=== PATIENT | female | born 1970 | race Two or more races ===

== ENCOUNTER 2018-08-18 15:56 | Emergency (ER) | payer MEDICAID ==
[~2018-08-18] VITALS: Ht 154.9 cm; Wt 113.4 kg
[2018-08-18 17:23] VITALS: BP 168/75
== END 2018-08-18 17:38 | disposition home or self-care (01) ==
LOC: ER 15:56
DX: F41.9 Anxiety disorder, unspecified (principal); M19.90 Unspecified osteoarthritis, unspecified site; E07.9 Disorder of thyroid, unspecified; F31.9 Bipolar disorder, unspecified; F12.90 Cannabis use, unspecified, uncomplicated; Z88.5 Allergy status to narcotic agent; Z88.0 Allergy status to penicillin; Z88.8 Allergy status to other drugs, medicaments and biological substances; Z90.49 Acquired absence of other specified parts of digestive tract

== ENCOUNTER 2018-12-28 12:19 | Emergency (ER) | payer MEDICAID, OTHER ==
[~2018-12-28] VITALS: Ht 152.4 cm; Wt 106.6 kg
[2018-12-28 12:26] VITALS: BP 127/61
[2018-12-28] MEDS ORDERED: METHOCARBAMOL 500 MG TAB PO ONE (14:15)
[2018-12-28] MEDS ORDERED: KETOROLAC TROMETH 60MG/2ML VIAL IM ONE (14:15)
== END 2018-12-28 14:52 | disposition home or self-care (01) ==
LOC: ER 12:19
DX: G89.4 Chronic pain syndrome (principal); N61.0 Mastitis without abscess; F12.10 Cannabis abuse, uncomplicated; M54.2 Cervicalgia; M79.7 Fibromyalgia; Z88.0 Allergy status to penicillin; Z88.6 Allergy status to analgesic agent; Z86.39 Personal history of other endocrine, nutritional and metabolic disease
CPT/HCPCS: 96372; 99283; J1885

== ENCOUNTER 2019-01-29 19:18 | Emergency (ER) | payer OTHER ==
[~2019-01-29] VITALS: Ht 152.4 cm; Wt 106.6 kg
[2019-01-29 19:26] VITALS: BP 134/63
== END 2019-01-29 23:22 | disposition home or self-care (01) ==
LOC: ER 19:22
DX: J03.80 Acute tonsillitis due to other specified organisms (principal); B96.89 Other specified bacterial agents as the cause of diseases classified elsewhere; J02.9 Acute pharyngitis, unspecified; Z90.49 Acquired absence of other specified parts of digestive tract; Z88.5 Allergy status to narcotic agent; Z88.0 Allergy status to penicillin; Z88.8 Allergy status to other drugs, medicaments and biological substances
CPT/HCPCS: 71046

== ENCOUNTER 2019-02-20 18:13 | Emergency (ER) | payer OTHER ==
[~2019-02-20] VITALS: Ht 152.4 cm; Wt 104.3 kg
[2019-02-20 18:53] VITALS: BP 132/60
[2019-02-20] MEDS ORDERED: KETOROLAC TROMETH 60MG/2ML VIAL IM ONE (19:00)
[2019-02-20] MEDS ORDERED: BACLOFEN 10 MG TAB PO ONE (19:00)
== END 2019-02-20 20:32 | disposition home or self-care (01) ==
LOC: ER 18:13
DX: G89.29 Other chronic pain (principal); M19.90 Unspecified osteoarthritis, unspecified site; E07.9 Disorder of thyroid, unspecified; F12.90 Cannabis use, unspecified, uncomplicated; Z88.0 Allergy status to penicillin; Z88.8 Allergy status to other drugs, medicaments and biological substances; Z88.5 Allergy status to narcotic agent; Z90.49 Acquired absence of other specified parts of digestive tract; Z76.0 Encounter for issue of repeat prescription
CPT/HCPCS: 96372; 99283; J1885

== ENCOUNTER 2019-04-25 14:00 | Emergency (ER) | payer OTHER ==
[~2019-04-25] VITALS: Ht 152.4 cm; Wt 114.8 kg
[2019-04-25] MEDS ORDERED: SODIUM CHLORIDE 0.9% 500 ML IVB ONE (14:17)
[2019-04-25] MEDS ORDERED: ONDANSETRON HCL 4 MG/2 ML VIAL IV ONE (14:30)
[2019-04-25] MEDS ORDERED: MORPHINE SULFATE 4 MG/ML SYR/VIAL IV ONE (14:30)
[2019-04-25 14:36] LABS: Basophils # (auto) 0 uL; Basophils % (auto) 0.8 % (0.0-2.0); Eosinophils # (auto) 0.3 uL; Eosinophils % (auto) 4.1 % (0.0-7.0); Hematocrit 43.4 % (36.0-46.0); Hemoglobin 14.8 g/dL (12.2-16.2); Lymphocytes # (auto) 1.8 uL; Lymphocytes % (auto) 28.9 % (10.0-50.0); Mean Corpuscular Hemoglobin 30.9 pg (28.0-32.0); Mean Corpuscular Hgb Conc. 34.2 g/dL (32.0-36.0); Mean Corpuscular Volume 90.3 fL (80.0-100.0); Monocytes # (auto) 0.5 uL; Neutrophils # (auto) 3.6 uL; Neutrophils % (auto) 58.2 % (37.0-80.0); Platelet Count (auto) 195 10^3/uL (140-450); Red Blood Cells 4.81 10^6/uL (4.0-5.20); Red Cell Distribution Width 13.9 % (11.8-14.3); White Blood Cell 6.1 10^3/uL (4.4-10.8)
[2019-04-25 15:00] LABS: Albumin 3.4 g/dL (3.4-5.0); BUN/Creatinine Ratio 11.6; Calcium 8.5 mg/dL (8.5-10.1); Potassium 3.9 mmol/L (3.5-5.1)
[2019-04-25 15:03] LABS: Total Protein 7.2 g/dL (6.4-8.2)
[2019-04-25 16:48] VITALS: BP 135/97
== END 2019-04-25 16:49 | disposition home or self-care (01) ==
LOC: EDBD 14:00 → ER 14:05
DX: R10.32 Left lower quadrant pain (principal); N93.8 Other specified abnormal uterine and vaginal bleeding; M19.90 Unspecified osteoarthritis, unspecified site; E78.5 Hyperlipidemia, unspecified; F12.10 Cannabis abuse, uncomplicated; Z98.51 Tubal ligation status; Z86.39 Personal history of other endocrine, nutritional and metabolic disease; Z88.0 Allergy status to penicillin; Z88.6 Allergy status to analgesic agent
CPT/HCPCS: 36415; 74176; 80053; 82150; 83690; 85025; 94761

== ENCOUNTER 2019-07-30 11:48 | Inpatient (IN) | payer OTHER ==
[~2019-07-30] VITALS: Ht 152.4 cm; Wt 118.8 kg
[2019-07-30 12:28] LABS: Urine WBC None Seen /hpf (0 - 5)
[2019-07-30 12:45] LABS: Basophils # (auto) 0.1 uL; Basophils % (auto) 1.3 % (0.0-2.0); Eosinophils # (auto) 0.2 uL; Eosinophils % (auto) 2.9 % (0.0-7.0); Hematocrit 42.9 % (36.0-46.0); Hemoglobin 14.7 g/dL (12.2-16.2); Lymphocytes # (auto) 2.1 uL; Lymphocytes % (auto) 26.3 % (10.0-50.0); Mean Corpuscular Hemoglobin 30.8 pg (28.0-32.0); Mean Corpuscular Hgb Conc. 34.4 g/dL (32.0-36.0); Mean Corpuscular Volume 89.5 fL (80.0-100.0); Monocytes # (auto) 0.6 uL; Monocytes % (auto) 7.1 % (0.0-12.0); Neutrophils % (auto) 62.4 % (37.0-80.0); Nucleated Red Blood Cells % 0.1 %; Platelet Count (auto) 226 10^3/uL (140-450); Red Blood Cells 4.79 10^6/uL (4.0-5.20); Red Cell Distribution Width 13.9 % (11.8-14.3)
[2019-07-30 12:58] LABS: Urine Bacteria FEW /hpf (None Seen); Urine Blood Negative /uL (Negative); Urine Mucus FEW (None Seen); Urine Specific Gravity 1.019 (1.001-1.035)
[2019-07-30 13:02] LABS: INR 0.94 (0.9-1.15)
[2019-07-30 13:08] LABS: Albumin 3.5 g/dL (3.4-5.0); Anion Gap 6 (5-15); Calcium 8.5 mg/dL (8.5-10.1); Carbon Dioxide 26 mmol/L (21-32); Chloride 107 mmol/L (98-107); Glucose 104 mg/dL (74-106); Magnesium 2.1 mg/dL (1.6-2.6); Potassium 4.1 mmol/L (3.5-5.1); Sodium 139 mmol/L (136-145)
[2019-07-30 13:09] LABS: Alcohol, Urine < 3.0 mg/dL (0-5); Amphetamine Screen, Urine NEGATIVE (NEGATIVE); Barbiturate Scree,Urine NEGATIVE (NEGATIVE); Benzodiazephine Screen, Urine NEGATIVE (NEGATIVE); Cannabinoid Screen, Urine NEGATIVE (NEGATIVE); Cocaine Screen, Urine NEGATIVE (NEGATIVE); Opiate Scree,Urine NEGATIVE (NEGATIVE); Phencyclidine Screen, Urine NEGATIVE (NEGATIVE)
[2019-07-30 13:15] LABS: Alanine Aminotransferase 54 U/L (13-56); Alkaline Phosphatase 78 U/L (45-117); Aspartate Aminotransferase 29 U/L (15-37); GFR African American 114 mL/min; GFR Non-African American 95 mL/min; Total Protein 7.5 g/dL (6.4-8.2)
[2019-07-30 13:54] LABS: BUN/Creatinine Ratio 11.4; Blood Urea Nitrogen 8 mg/dL (7-18)
[2019-07-30] MEDS ORDERED: NITROGLYCERIN 0.4 MG SL TAB SL PRN (15:30)
[2019-07-30] MEDS ORDERED: MORPHINE SULF INJ 2 MG/ML SYRINGE 1ML IV PRN ×2 (15:30)
[2019-07-30] MEDS ORDERED: ACETAMINOPHEN 500 MG TAB PO PRN (15:30)
[2019-07-30] MEDS ORDERED: ONDANSETRON HCL 4 MG/2 ML VIAL IV PRN (15:30)
[2019-07-30 15:46] LABS: % Iron Saturation 30.2 % (15-50)
[2019-07-30 15:56] LABS: CRP High Sensitivity 0.35 mg/dL (< 0.3)
[2019-07-30 17:00] VITALS: BP 156/77
[2019-07-30] MEDS: HYDROcodone-ACET 5/325MG TAB PO PRN (18:45)
--- NOTE | 2019-07-30 20:00 | NUR ---
PATIENT LYING IN BED COMFORTABLY WITH SITTER AT BEDSIDE FOR PATIENT SAFETY. PATIENT IN NO APPARENT CARDIAC OR PULMONARY DISTRESS, AND IS COMPLIANT AND COOPERATIVE. WILL CONTINUE TO MONITOR PATIENT.
[2019-07-30] MEDS ORDERED: CHOL500021 OR (20:23)
[2019-07-30] MEDS ORDERED: FERR-7 PO (20:23)
[2019-07-30] MEDS ORDERED: CYAN250L PO (20:23)
[2019-07-30] MEDS ORDERED: ATOR20TA PO (20:23)
[2019-07-30] MEDS ORDERED: LEVO50TA7 PO (20:23)
--- NOTE | 2019-07-30 20:29 | NUR ---
PATIENT IS ALERT AND ORIENTED X4. PATIENT STATES SHE HAS NUMBNESS TINGLING TO LEFT SIDED FACE AND LEFT SIDE OF HER BODY. PATIENT STATES HER WHOLE LEFT SIDE IS WEAK. PATIENT ALSO STATES SHE HAS PAIN WHILE SHE BREATHES AND STARTED AROUND SUNDAY. PATIENT PREVIOUSLY GIVEN NORCO @ 1845 WITH SOME RELIEF. PATIENT DOES HAS SWELLING TO LLE PULSES PALPABLE, AND IS EXPECTED TO HAVE US BLE. HER D-DIMER 0.22. PATIENT SATURATING 96% ON ROOM AIR. PAGED HOSPITALIST FOR ORDERS. Addendum: 07/30/19 at 2049 by NOE ENRIQUEZ RN RN HOSPITALIST AILYN CALLED BACK, NO NEW ORDERS GIVEN, CONTINUE TO MONITOR.
[2019-07-30 22:00] VITALS: BP 118/70
--- NOTE | 2019-07-30 23:43 | NUR ---
TELEPSYCH SUBMITTED. AWAITING CALL BACK.
--- NOTE | 2019-07-31 01:00 | NUR ---
TELEPSYCH COMPLETED RECOMMENDATIONS FOR PATIENT TO BE PUT BACK ON SEROQUEL 25MG PO QHS AND STRATTERA 20MG PO DAILY. TELEPSYCH CONSULT PLACED IN CHART.
[2019-07-31 05:19] VITALS: BP 129/77
--- NOTE | 2019-07-31 06:42 | NUR ---
PATIENT LYING IN BED ALSEEP, WITH SITTER AT BEDSIDE FOR PATIENT SAFETY
--- NOTE | 2019-07-31 07:40 | NUR ---
Opening Shift Note Assumed care of patient, awake and alert x4. Patient appears, calm and relaxed. Patient denies having thoughts to hurt self, or others. No S/S of distress/SOB. Patient c/o pain in bilateral lower extremities, rates it 5/10. Will medicate as prescribed by MD. Bed at lowest locked position, bed side rails up x2 and call light within reach. Instructed on POC and to call for assist PRN, will continue to monitor for changes Q1hr and PRN. Sitter at bedside for safety.
[2019-07-31 09:00] VITALS: BP 146/77
[2019-07-31] MEDS: FAMOTIDINE 20 MG TAB PO SCH (10:25)
[2019-07-31] MEDS: HYDROcodone-ACET 5/325MG TAB PO PRN ×2 (10:28→18:13)
[2019-07-31 13:00] VITALS: BP 138/71
--- NOTE | 2019-07-31 14:16 | NUR ---
assessment Patient is a 49 year old female who is alert and oriented. Patients cognitive abilities are intact. Prior to admission patient lived home with family and functioned independently. Patient informed me she is able to care for her own ADLs. Per patient she will return home to her prior living arrangements post discharge and family will transport her home. Patients PCP is Dr High. I informed patient she has a ss consult that states past suicide attempt and current thoughts, and wants advanced directive. Patient informed me she had a previous suicide attempt due to her bi-polar and PTSD. Patient sought help and now is able to recognize her triggers. Patient informed me she does not have thoughts of self harm or harm to others. I informed patient the importance of therapy to help her work through her PTSD and depression. Patient informed me she will call her insurance and speak to a behavioral health nurse and schedule an appointment with a therapist. Per patient she has been cleared by telepsych. Per Anupama no recommendation of inpatient psych per telepsych. Patient has been provided with behavioral health phone number and crisis center information. I informed patient she has a right to speak to a social science analyst regarding all care. I informed patient she has a right to participate in any and all discharge planning. Patient does not have a POA and advanced directive. I have offered patient information on POA and advanced directives. I informed the patient the advantages and benefits of having an Advanced Directive. Patient verbalized understanding and agreed to discharge plan. Addendum: 07/31/19 at 1428 by Page YOUSSEF Amended: Links added.
[2019-07-31 17:00] VITALS: BP 120/76
--- NOTE | 2019-07-31 18:23 | NUR ---
TELE- PSYCH CONSULT CALLED TELE-PSYCH AT FOR CLARIFICATION OF MD RECOMMENDATIONS. LEFT MESSAGE WITH BERNARDO. AWAITING FOR MD HAINES TO CALL BACK. Addendum: 07/31/19 at [address]45 [address] Melba Doty RN DR. HAINES CALLED BACK AND CLARIFIED ORDERS. WILL FAX REPORT TO [facility]. PER DR WIN, CONTINUE TELE-PSYCH RECOMMENDATIONS.
[2019-07-31] MEDS ORDERED: DULoxetine HCL 30 MG CAP PO ONE (18:45)
--- NOTE | 2019-07-31 18:54 | NUR ---
CLOSING NOTE PATIENT IS COMFORTABLY SITTING AT THE EDGE OF THE BED, ENJOYING DINNER. NO S/S OF DISTRESS/SOB NOTED STATED. BED AT LOWEST LOCKED POSITION, BED SIDE RAILS UP X2 AND CALL LIGHT WITHIN REACH. WILL ENDORSE CARE TO NOC RN.
[2019-07-31] MEDS: QUEtiapine FUMARATE 25 MG TAB PO SCH (20:14)
[2019-07-31 22:00] VITALS: BP 104/60
[2019-07-31] MEDS ORDERED: QUEtiapine FUMARATE 25 MG TAB PO SCH (22:00)
[2019-08-01 05:00] VITALS: BP 101/43
--- NOTE | 2019-08-01 07:45 | NUR ---
Opening shift note Assumed care of patient, patient is comfortably sleeping in bed, breath sounds are even and unlabored. No s/s of distress/sob noted. Bed at lowest locked position, bed side rails up x2 and call light within reach. Will continue to monitor Q1hr and as needed.
[2019-08-01 08:00] VITALS: BP 114/64
[2019-08-01 08:41] VITALS: BP 114/64
[2019-08-01] MEDS: HYDROcodone-ACET 5/325MG TAB PO PRN ×2 (09:55→12:43)
[2019-08-01] MEDS: DULOXETINE 20 MG PO SCH (10:00)
[2019-08-01] MEDS ORDERED: ADENOSINE 100 MG in GIVE UN-DILUTED 0 ML IV STA (10:11)
[2019-08-01] MEDS ORDERED: ASPirin 81 mg TAB PO ONE ×2 (10:15→18:45)
--- NOTE | 2019-08-01 11:33 | NUR ---
Nutrition Assessment Notes please see attached link for complete assessment Est. Needs based on ABW (82 kg): 5649-2128 kcal (17-20 kcal/kgBW), 82-90 gms pro (1.0-1.1 gms/kgBW). Will continue to monitor pertinent labs and reassess nutrient need prn Addendum: 08/01/19 at [address] Amended: Links added.
--- NOTE | 2019-08-01 12:30 | NUR ---
Antelmo ATKINS AT BEDSIDE. AWARE OF PATIENT'S RIGHT SHOULDER PAIN. NO FURTHER ORDERS.
[2019-08-01] MEDS ORDERED: QUET50TA PO (12:31)
[2019-08-01] MEDS ORDERED: DULO20CA PO (12:31)
[2019-08-01] MEDS ORDERED: ATOR40TA52 PO (12:34)
[2019-08-01] MEDS ORDERED: ASPI-231 PO (12:34)
[2019-08-01] MEDS: FAMOTIDINE 20 MG TAB PO SCH (12:43)
[2019-08-01 13:00] VITALS: BP 110/71
[2019-08-01] MEDS ORDERED: DULoxetine HCL 30 MG CAP PO ONE (13:00)
--- NOTE | 2019-08-01 15:15 | NUR ---
AMA form Patient signed AMA to walk outside. No c/o dizziness, no s/s of distress noted/stated.
[2019-08-01 17:00] VITALS: BP 111/78
[2019-08-01] MEDS ORDERED: CLOPIDOGREL 300 MG TAB PO ONE (18:30)
--- NOTE | 2019-08-01 18:44 | NUR ---
Closing Note Patient is sitting up in bed having dinner, no s/s of distress/sob noted/stated. No c/o pain. Bed at lowest locked position, bed side rails up x2 and call light within reach. Will endorse care to NOC RN.
[2019-08-01] MEDS: ATORVASTATIN 20 MG TAB PO SCH (21:17)
[2019-08-01] MEDS: ENOXAPARIN SOD 120 MG/0.8 ML SYRINGE SC SCH (21:19)
[2019-08-01] MEDS: QUEtiapine FUMARATE 25 MG TAB PO SCH (21:19)
[2019-08-01 22:00] VITALS: BP 133/67
[2019-08-02 05:00] VITALS: BP 115/53
--- NOTE | 2019-08-02 07:55 | NUR ---
Opening Shift Note Assumed care of patient, patient comfortably sleeping in bed. No S/S of distress/SOB or pain. Bed at lowest locked position and call light within reach, bed side rails up x2. Instructed on POC and to call for assist PRN, will continue to monitor for changes Q1hr and PRN.
[2019-08-02 08:00] VITALS: BP 101/53
[2019-08-02 08:29] LABS: Calcium 8.7 mg/dL (8.5-10.1); Potassium 4.3 mmol/L (3.5-5.1)
[2019-08-02 08:33] LABS: Albumin 3.3 g/dL (3.4-5.0); BUN/Creatinine Ratio 16.9
[2019-08-02 08:35] LABS: Bilirubin, Total 0.8 mg/dL (0.2-1.0); Total Protein 7.1 g/dL (6.4-8.2)
[2019-08-02 09:00] VITALS: BP 101/53
[2019-08-02 09:00] LABS: Basophils # (auto) 0.1 uL; Basophils % (auto) 1.1 % (0.0-2.0); Eosinophils # (auto) 0.3 uL; Eosinophils % (auto) 4.1 % (0.0-7.0); Hematocrit 43.5 % (36.0-46.0); Hemoglobin 14.4 g/dL (12.2-16.2); Lymphocytes # (auto) 2.2 uL; Lymphocytes % (auto) 35.1 % (10.0-50.0); Mean Corpuscular Hemoglobin 30.9 pg (28.0-32.0); Mean Corpuscular Hgb Conc. 33.1 g/dL (32.0-36.0); Mean Corpuscular Volume 93.3 fL (80.0-100.0); Monocytes # (auto) 0.6 uL; Neutrophils # (auto) 3.2 uL; Neutrophils % (auto) 50.7 % (37.0-80.0); Nucleated Red Blood Cells % 0.1 %; Platelet Count (auto) 191 10^3/uL (140-450); Red Blood Cells 4.66 10^6/uL (4.0-5.20); Red Cell Distribution Width 13.8 % (11.8-14.3); White Blood Cell 6.4 10^3/uL (4.4-10.8)
[2019-08-02] MEDS: CLOPIDOGREL BISULFATE 75 MG TAB PO SCH (09:45)
[2019-08-02] MEDS: FAMOTIDINE 20 MG TAB PO SCH (09:45)
[2019-08-02] MEDS: ASPirin 81 mg TAB PO SCH (09:45)
[2019-08-02] MEDS: ENOXAPARIN SOD 120 MG/0.8 ML SYRINGE SC SCH ×2 (09:46→21:45)
[2019-08-02] MEDS: HYDROcodone-ACET 5/325MG TAB PO PRN ×2 (09:46→21:47)
[2019-08-02] MEDS ORDERED: DULoxetine HCL 30 MG CAP PO ONE (11:00)
[2019-08-02] MEDS: DULOXETINE 20 MG PO SCH (11:40)
[2019-08-02 13:00] VITALS: BP 128/65
[2019-08-02 17:00] VITALS: BP 149/67
[2019-08-02 21:46] VITALS: BP 130/62
[2019-08-02] MEDS: ATORVASTATIN 20 MG TAB PO SCH (21:46)
[2019-08-02] MEDS: DOCUSATE SOD 100 MG CAP PO PRN (21:47)
[2019-08-02] MEDS: QUEtiapine FUMARATE 25 MG TAB PO SCH (21:47)
[2019-08-03 04:36] VITALS: BP 102/56
[2019-08-03 06:20] LABS: Basophils # (auto) 0.1 uL; Basophils % (auto) 1.3 % (0.0-2.0); Eosinophils # (auto) 0.3 uL; Eosinophils % (auto) 3.9 % (0.0-7.0); Hematocrit 40.3 % (36.0-46.0); Hemoglobin 13.6 g/dL (12.2-16.2); Lymphocytes # (auto) 2.5 uL; Lymphocytes % (auto) 37.1 % (10.0-50.0); Mean Corpuscular Hemoglobin 30.6 pg (28.0-32.0); Mean Corpuscular Hgb Conc. 33.7 g/dL (32.0-36.0); Mean Corpuscular Volume 90.7 fL (80.0-100.0); Monocytes # (auto) 0.6 uL; Monocytes % (auto) 9.2 % (0.0-12.0); Neutrophils # (auto) 3.3 uL; Neutrophils % (auto) 48.5 % (37.0-80.0); Nucleated Red Blood Cells % 0.1 %; Platelet Count (auto) 191 10^3/uL (140-450); Red Blood Cells 4.44 10^6/uL (4.0-5.20); Red Cell Distribution Width 13.8 % (11.8-14.3); White Blood Cell 6.7 10^3/uL (4.4-10.8)
--- NOTE | 2019-08-03 06:37 | NUR ---
PT RESTED WELL THROUGHOUT THE NIGHT;EXPRESSES DISAPPOINTMENT THAT ER DIDNT GIVE HER A PAIN SHOT AND SEND HER HOME;PT STATES SHE IS TIRED OF BEING HERE .ENCOURAGED HER TO DISCUSS HER CONCERNS WITH THE MD TODAY. CALL LIGHT IN REACH, WITH TWO SIDE RAILS UP.
[2019-08-03 06:40] LABS: INR 0.95 (0.9-1.15)
[2019-08-03 06:42] LABS: Albumin 3.2 g/dL (3.4-5.0); Potassium 4.1 mmol/L (3.5-5.1)
[2019-08-03 06:48] LABS: BUN/Creatinine Ratio 16.3; Bilirubin, Total 0.7 mg/dL (0.2-1.0); Calcium 9.2 mg/dL (8.5-10.1); Magnesium 1.9 mg/dL (1.6-2.6); Phosphorus 4.1 mg/dL (2.5-4.90); Total Protein 6.7 g/dL (6.4-8.2)
--- NOTE | 2019-08-03 07:30 | NUR ---
GREETED PT. STATES SHE SLEPT WELL AND HAS NO COMPLAINTS.
--- NOTE | 2019-08-03 08:00 | NUR ---
PT DECLINES BREAKFAST TRAY CHOOSES TO SLEEP IN.
[2019-08-03 09:00] VITALS: BP 116/66
[2019-08-03] MEDS: FAMOTIDINE 20 MG TAB PO SCH (10:00)
[2019-08-03] MEDS: ENOXAPARIN SOD 120 MG/0.8 ML SYRINGE SC SCH ×2 (10:51→21:24)
[2019-08-03] MEDS: CLOPIDOGREL BISULFATE 75 MG TAB PO SCH (10:54)
[2019-08-03] MEDS: ASPirin 81 mg TAB PO SCH (10:55)
[2019-08-03] MEDS: DULoxetine HCL 30 MG CAP PO SCH (10:56)
[2019-08-03] MEDS: DULOXETINE 20 MG PO SCH (10:58)
[2019-08-03 13:00] VITALS: BP 109/65
[2019-08-03] MEDS ORDERED: LEVOTHYROXINE SODIUM 50 MCG TAB PO ONE (14:00)
[2019-08-03 17:00] VITALS: BP 125/63
[2019-08-03] MEDS: HYDROcodone-ACET 5/325MG TAB PO PRN (17:43)
--- NOTE | 2019-08-03 19:10 | NUR ---
Opening shift note Assumed care of patient who is A&O x4. Currently on RA with no s/s of SOB or distress. Reports 4/10 headache, states that this is a tolerable level of pain for her. Reports mild residual numbness in left thigh, improved since onset. Denies chest pain at this time. Patient is ambulatory at baseline and has been ambulating independently to restroom during this hospitalization. POC discussed with patient who verbalizes understanding. Patient to be NPO after midnight 08/04/19 for roving tester laboratory procedure. Bed is in low locked position with side rails up x2. Call light is within reach and patient encouraged to call for assistance when needed. Will continue to monitor for changes PRN.
[2019-08-03] MEDS: ATORVASTATIN 20 MG TAB PO SCH (21:39)
[2019-08-03] MEDS: QUEtiapine FUMARATE 25 MG TAB PO SCH (21:39)
[2019-08-03 21:53] VITALS: BP 122/58
--- NOTE | 2019-08-03 23:40 | NUR ---
Dr. Maria Fernanda Dick at bedside.
[2019-08-04 04:54] VITALS: BP 109/61
[2019-08-04 06:23] LABS: Basophils # (auto) 0.1 uL; Basophils % (auto) 1.2 % (0.0-2.0); Eosinophils # (auto) 0.3 uL; Eosinophils % (auto) 4.3 % (0.0-7.0); Hematocrit 38.6 % (36.0-46.0); Hemoglobin 13.4 g/dL (12.2-16.2); Lymphocytes # (auto) 2.1 uL; Lymphocytes % (auto) 34.6 % (10.0-50.0); Mean Corpuscular Hemoglobin 31.1 pg (28.0-32.0); Mean Corpuscular Hgb Conc. 34.6 g/dL (32.0-36.0); Mean Corpuscular Volume 89.8 fL (80.0-100.0); Monocytes # (auto) 0.6 uL; Monocytes % (auto) 9.5 % (0.0-12.0); Neutrophils # (auto) 3.1 uL; Neutrophils % (auto) 50.4 % (37.0-80.0); Nucleated Red Blood Cells % 0.1 %; Platelet Count (auto) 180 10^3/uL (140-450); Red Cell Distribution Width 13.8 % (11.8-14.3); White Blood Cell 6.1 10^3/uL (4.4-10.8)
[2019-08-04] MEDS: LEVOTHYROXINE SODIUM 50 MCG TAB PO SCH (06:26)
[2019-08-04 06:41] LABS: Albumin 3.1 g/dL (3.4-5.0); Calcium 8.6 mg/dL (8.5-10.1); Magnesium 1.9 mg/dL (1.6-2.6)
--- NOTE | 2019-08-04 06:42 | NUR ---
Rounds Patient resting in bed with eyes open; no distress noted. Reports generalized chronic pain 4/10, which she states is tolerable. All needs are met at this time.
[2019-08-04 06:46] LABS: BUN/Creatinine Ratio 15.8; Bilirubin, Total 0.9 mg/dL (0.2-1.0); Phosphorus 3.7 mg/dL (2.5-4.90); Total Protein 6.5 g/dL (6.4-8.2)
[2019-08-04 06:48] LABS: INR 0.99 (0.9-1.15); Partial Thromboplastin Time 29.3 sec (23.64-32.05)
--- NOTE | 2019-08-04 07:30 | NUR ---
Opening Shift Note RECEIVED REPORT FROM NOC RN. Assumed care of patient, awake and alert. No S/S of distress/SOB or pain. BED IN LOWEST, LOCKED POSITION WITH SIDERAILS UP x2 AND CALL LIGHT WITHIN REACH. Instructed on POC and to call for assist PRN, will continue to monitor for changes Q1hr and PRN.
[2019-08-04 09:00] VITALS: BP 109/46
[2019-08-04] MEDS: DULOXETINE 20 MG PO SCH (10:00)
[2019-08-04] MEDS: ASPirin 81 mg TAB PO SCH (10:12)
[2019-08-04] MEDS: CLOPIDOGREL BISULFATE 75 MG TAB PO SCH (10:12)
[2019-08-04] MEDS: DULoxetine HCL 30 MG CAP PO SCH (10:12)
[2019-08-04] MEDS: ENOXAPARIN SOD 120 MG/0.8 ML SYRINGE SC SCH (10:13)
[2019-08-04] MEDS: FAMOTIDINE 20 MG TAB PO SCH (10:13)
[2019-08-04] MEDS: HYDROcodone-ACET 5/325MG TAB PO PRN ×2 (11:54→19:40)
[2019-08-04 13:00] VITALS: BP 130/81
[2019-08-04 17:00] VITALS: BP 114/57
--- NOTE | 2019-08-04 19:44 | NUR ---
RECEIVED PATIENT FROM DAY SHIFT RN. PATIENT RESTING IN BED. STARTED TO C/O CHEST PAIN @5/10 AT 1930, VITALS STABLE, TEMP 98.2,HR 72, BP 119/60, RR 18, O2 SAT 98%. OXYGEN APPLIED AT 2L/NC, EKG DONE, SHOWED SR 69. NORCO MEDICATED ORDERED. PATIENT STATED PAIN GETTING BETTER AFTER O2. REINFORCED NPO AFTER MIDNIGHT FOR PROCEDURE TOMORROW. PATIENT VERBALIZED UNDERSTANDING. POC INSTRUCTED AND ENCOURAGED PATIENT TO CALL FOR MIDDLE CARD TENDER IF NEEDED. BED IN LOWEST POSITION WITH SIDE RAILS UP X 2. CALL BROWN WITHIN REACH. ALARM ON. CONTINUE TO MONITOR FOR CHANGES Q1H AND PRN.
[2019-08-04 22:00] VITALS: BP 115/65
[2019-08-04] MEDS: QUEtiapine FUMARATE 25 MG TAB PO SCH (22:14)
[2019-08-04] MEDS: ATORVASTATIN 20 MG TAB PO SCH (22:14)
--- NOTE | 2019-08-04 23:15 | NUR ---
PATIENT C/O RECTAL BLEED WHEN PATIENT URINATED. IT WAS FLUSH RED. PATIENT DID HAS HISTORY OF HEMORRHOID. NO PAIN AT THIS TIME. INSTRUCTED PATIENT TO CALL FOR NEXT TIME IF PATIENT GO TO BATHROOM SO THAT CAN CHECK. AND WILL PASS TO DAY SHIFT RN FOR THIS EPISODE OF RECTAL BLEED. CONTINUE TO MONITOR.
--- NOTE | 2019-08-05 00:14 | NUR ---
REINFORCED PATIENT NPO FROM NOW ON. WATER AND FOOD REMOVED FROM BEDSIDE. PATIENT VERBALIZED UNDERSTANDING. CONTINUE CARE.
--- NOTE | 2019-08-05 02:19 | NUR ---
PATIENT SLEEPING. NO S/S OF DISTRESS NOTED. CONTINUE CARE.
[2019-08-05 05:38] LABS: Basophils # (auto) 0.1 uL; Eosinophils # (auto) 0.2 uL; Eosinophils % (auto) 4.1 % (0.0-7.0); Hemoglobin 13.9 g/dL (12.2-16.2); Lymphocytes # (auto) 2.1 uL; Lymphocytes % (auto) 34.9 % (10.0-50.0); Mean Corpuscular Hemoglobin 31.4 pg (28.0-32.0); Mean Corpuscular Hgb Conc. 34.7 g/dL (32.0-36.0); Mean Corpuscular Volume 90.5 fL (80.0-100.0); Monocytes # (auto) 0.6 uL; Monocytes % (auto) 9.4 % (0.0-12.0); Neutrophils % (auto) 50.6 % (37.0-80.0); Platelet Count (auto) 174 10^3/uL (140-450); Red Blood Cells 4.42 10^6/uL (4.0-5.20); Red Cell Distribution Width 13.8 % (11.8-14.3)
[2019-08-05 05:46] LABS: INR 0.94 (0.9-1.15); Partial Thromboplastin Time 28.5 sec (23.64-32.05)
[2019-08-05 05:51] VITALS: BP 110/69
[2019-08-05 05:54] LABS: Calcium 8.1 mg/dL (8.5-10.1); Potassium 3.8 mmol/L (3.5-5.1)
--- NOTE | 2019-08-05 06:46 | NUR ---
REINFORCED NPO NOW. PATIENT VERBALIZED UNDERSTANDING. CONTINUE TO MONITOR.
[2019-08-05] MEDS: LEVOTHYROXINE SODIUM 50 MCG TAB PO SCH (07:00)
[2019-08-05 08:00] VITALS: BP 121/65
[2019-08-05 09:00] VITALS: BP 121/65
[2019-08-05] MEDS: ASPirin 81 mg TAB PO SCH (10:00)
[2019-08-05] MEDS: CLOPIDOGREL BISULFATE 75 MG TAB PO SCH (10:00)
[2019-08-05] MEDS: DULOXETINE 20 MG PO SCH (10:00)
[2019-08-05] MEDS: FAMOTIDINE 20 MG TAB PO SCH (10:12)
[2019-08-05] MEDS: DULoxetine HCL 30 MG CAP PO SCH (10:13)
--- NOTE | 2019-08-05 11:30 | NUR ---
Pt off unit to cath lab radiological technologist via bed, vs wnl no acute distress noted at departure.
[2019-08-05] MEDS ORDERED: LIDOCAINE 2%HCL (LOCAL ANESTH.) INJ 20ML MDV ONE (12:25)
[2019-08-05] MEDS ORDERED: HEPARIN IN NS 1000Units/500mL 0 ML ONE (12:25)
[2019-08-05] MEDS ORDERED: IOHEXOL 350 MG/ML 100ML IJ ONE (12:25)
--- NOTE | 2019-08-05 13:44 | NUR ---
PT BACK TO ROOM. PROCEDURE WAS POSTPONED PER FORENSIC ECONOMIST RN.
--- NOTE | 2019-08-05 14:47 | NUR ---
Nutrition Follow-up Notes Wt.: 120.2 kg today. Pt's on oxygen via nasal cannula, asleep, no immediate family member at bedside during rounds this morning. Pt's no signs of distress noted earlier, currently on NPO for a procedure today, likely to resume today on oral diet with active order for 2 gms Na diet. Noted pt's for active Neurology consult. Est. Needs based on ABW (82 kg): 1122-4677 kcal (17-20 kcal/kgBW), 82-90 gms pro (1.0-1.1 gms/kgBW). Will continue to monitor pertinent labs and reassess nutrient need prn Labs: BUN 4 L, Ca 8.1 L, Alb 3.1 L Skin: Abdelrahman scale 19, low risk, skin intact per mine equipment design engineer. GI: Pt had 2x BM yesterday per mine equipment design engineer. PES: Altered nutrition related lab values r/t current/chronic medical condition aeb elev LDL Obesity r/t food intake more than body requirement aeb 264% IBW, BMI 51.8 kg/m2 and increased body adiposity Will continue to monitor NPO status/PO intake, skin status, pertinent labs and weight trend. F/u in 3 to 5 days. Rec.: 1.) Resume oral diet (Cardiac: 2 gms Na, Low Chol, Low Fat diet) when medically appropriate. 2.) Continue close supervision during meals. 3.) If Albumin continues trending down, consider Prostat 1 pkt BID. 4.) Refer pt to RD for further nutrition education and weight monitoring upon discharge. 5.) Continue current plan of care.
[2019-08-05] MEDS: HYDROcodone-ACET 5/325MG TAB PO PRN (15:40)
[2019-08-05 16:46] VITALS: BP 123/61
--- NOTE | 2019-08-05 19:31 | NUR ---
RECEIVED PATIENT FROM DAY SHIFT RN. PATIENT RESTING IN BED. FAMILY AT BEDSIDE NOW. DENIED ANY PAIN AND CHEST DISCOMFORT NOW. REINFORCED NPO AFTER MIDNIGHT FOR PROCEDURE TOMORROW. PATIENT VERBALIZED UNDERSTANDING. POC INSTRUCTED AND ENCOURAGED PATIENT TO CALL FOR SAFETY SPEC IF NEEDED. BED IN LOWEST POSITION WITH SIDE RAILS UP X 2. CALL BROWN WITHIN REACH. CONTINUE TO MONITOR FOR CHANGES Q1H AND PRN.
[2019-08-05 21:55] VITALS: BP 122/66
[2019-08-05] MEDS: QUEtiapine FUMARATE 25 MG TAB PO SCH (22:07)
[2019-08-05] MEDS: ATORVASTATIN 20 MG TAB PO SCH (22:07)
--- NOTE | 2019-08-05 22:20 | NUR ---
PATIENT RESTING IN BED. NO S/S OF DISTRESS NOTED. DENIED PAIN FOR NOW. CONTINUE TO MONITOR.
--- NOTE | 2019-08-06 00:56 | NUR ---
REINFORCED PATIENT NPO FROM NOW ON. WATER AND FOOD REMOVED FROM BEDSIDE. PATIENT VERBALIZED UNDERSTANDING. CONTINUE CARE.
--- NOTE | 2019-08-06 02:32 | NUR ---
PATIENT SLEEPING. NO S/S OF DISTRESS NOTED. CONTINUE CARE.
[2019-08-06] MEDS: LEVOTHYROXINE SODIUM 50 MCG TAB PO SCH (06:20)
--- NOTE | 2019-08-06 06:30 | NUR ---
REINFORCED NPO NOW. PATIENT VERBALIZED UNDERSTANDING. CONTINUE TO MONITOR.
--- NOTE | 2019-08-06 06:50 | NUR ---
PATIENT TRANSFERRED TO [facility] FOR PROCEDURE VIA HOSPITAL BED. PATIENT TOLERATED WELL. REPORT GIVEN TO RN IN [employer] [employer].
[2019-08-06] MEDS ORDERED: LIDOCAINE 2%HCL (LOCAL ANESTH.) INJ 20ML MDV ONE (06:56)
[2019-08-06] MEDS ORDERED: IODIXANOL 320MG/ML 100ML BTL IV ONE (06:56)
[2019-08-06] MEDS ORDERED: MIDAZOLAM HCL 1MG/1ML-2 ML VIAL ONE (07:16)
[2019-08-06] MEDS ORDERED: ANGIOMAX 250 MG VIAL IV ONE (07:16)
[2019-08-06] MEDS ORDERED: VERAPAMIL 2.5MG/ML INJ 2ML VIAL IV ONE (07:16)
[2019-08-06] MEDS ORDERED: fentaNYL CITRATE 100 MCG/2 ML VL ONE (07:16)
[2019-08-06] MEDS ORDERED: SODIUM CHL 0.9% 0 ML ONE (07:17)
[2019-08-06] MEDS ORDERED: HEPARIN SODIUM (PORCINE) 5000 UNITS/ML 1ML VIAL ONE (07:42)
--- NOTE | 2019-08-06 08:55 | NUR ---
PT BACK TO UNIT FROM [facility]KER. PT AWAKE, ALERT, ORIENTED x4. DENIES DISCOMFORT AT MOMENT. EFFORTLESS BREATHING ON ROOM AIR. LEFT RADIAL VASC BAND IN PLACE, PER REPORT 10ML OF AIR, REMOVED 2ML PER INSTRUCTIONS. NO BLEEDING TO SITE, SENSATION AND TEMPERATURE TO EXTREMITY INTACT. VS: 97.7; 79; 18; 93% ROOM AIR; 109/59 PT ORIENTED TO ROOM ENVIRONMENT, BED LOCKED AND IN LOWEST POSITION, CALL LIGHT WITHIN REACH. WILL CONTINUE TO MONITOR.
[2019-08-06 09:11] VITALS: BP 109/59
--- NOTE | 2019-08-06 09:45 | NUR ---
VASC BAND DEFLATED NOW, DRY DRESSING WITH TEGADERM IN PLACE. NO ACTIVE BLEEDING TO SITE, SENSATION INTACT, EXTREMITY WARM TO TOUCH. NO PAIN TO SITE. BAND AND SYRINGE AT BEDSIDE. CALL LIGHT WITHIN REACH.
[2019-08-06] MEDS: CLOPIDOGREL BISULFATE 75 MG TAB PO SCH (10:00)
[2019-08-06] MEDS: DULoxetine HCL 30 MG CAP PO SCH (10:00)
[2019-08-06] MEDS: DULOXETINE 20 MG PO SCH (10:00)
[2019-08-06] MEDS: FAMOTIDINE 20 MG TAB PO SCH (10:00)
[2019-08-06] MEDS: ASPirin 81 mg TAB PO SCH (10:00)
[2019-08-06 10:15] VITALS: BP 117/58
[2019-08-06] MEDS: HYDROcodone-ACET 5/325MG TAB PO PRN (10:19)
--- NOTE | 2019-08-06 12:10 | NUR ---
DR. WIN IN TO SEE PT. POSSIBLE DC LATER IN AFTERNOON. PT AWARE OF PLAN.
[2019-08-06 12:53] VITALS: BP 112/67
[2019-08-06 17:00] VITALS: BP 113/55
--- NOTE | 2019-08-06 19:15 | NUR ---
RECEIVED PATIENT FROM DAY SHIFT RN. PATIENT RESTING IN BED. NO S/S OF DISTRESS NOTED. DENIED ANY PAIN AND CHEST DISCOMFORT NOW. DRESSING ON LEFT WRIST C/D/I. POC INSTRUCTED AND ENCOURAGED PATIENT TO CALL FOR MULTI CARE TECHNICIAN IF NEEDED. BED IN LOWEST POSITION WITH SIDE RAILS UP X 2. CALL BROWN WITHIN REACH. CONTINUE TO MONITOR FOR CHANGES Q1H AND PRN.
--- NOTE | 2019-08-06 19:30 | NUR ---
RECEIVED PATIENT FROM DAY SHIFT RN. PATIENT RESTING IN BED. NO S/S OF DISTRESS NOTED. C/O PAIN @ 03/03 AFTER NORCO GIVEN EARLIER. WILL COME BACK FOR OTHER PAIN MEDICATION LATER PER PATIENT REQUESTS. DRESSING ON ABD C/D/I WITH ABD BINDER ON. POC INSTRUCTED AND ENCOURAGED PATIENT TO CALL FOR SPRING INTERN IF NEEDED. BED IN LOWEST POSITION WITH SIDE RAILS UP X 2. CALL BROWN WITHIN REACH. CONTINUE TO MONITOR FOR CHANGES Q1H AND PRN. Addendum: 08/06/19 at 2002 by Vernon Abernathy RN WRONG NOTES
[2019-08-06] MEDS: ATORVASTATIN 20 MG TAB PO SCH (21:48)
[2019-08-06] MEDS: QUEtiapine FUMARATE 25 MG TAB PO SCH (21:48)
[2019-08-06] MEDS: DOCUSATE SOD 100 MG CAP PO PRN (21:51)
[2019-08-06 22:00] VITALS: BP 113/63
--- NOTE | 2019-08-07 01:13 | NUR ---
PATIENT SLEEPING. NO S/S OF DISTRESS NOTED. CONTINUE CARE.
[2019-08-07 05:00] VITALS: BP 110/60
[2019-08-07] MEDS: LEVOTHYROXINE SODIUM 50 MCG TAB PO SCH (06:36)
--- NOTE | 2019-08-07 08:00 | NUR ---
Morning Note Assumed care of patient, resting with eyes closed.Respiration even and unlabored. No S/S of distress/SOB or pain. Bed in lowest position, breaks locked, side rails up x2, call light with in reach. Will continue to monitor for changes Q1hr and PRN.
[2019-08-07 09:30] VITALS: BP 110/62
[2019-08-07] MEDS: DULOXETINE 20 MG PO SCH (10:00)
[2019-08-07] MEDS: CLOPIDOGREL BISULFATE 75 MG TAB PO SCH (10:07)
[2019-08-07] MEDS: FAMOTIDINE 20 MG TAB PO SCH (10:07)
[2019-08-07] MEDS: ASPirin 81 mg TAB PO SCH (10:07)
[2019-08-07] MEDS: DULoxetine HCL 30 MG CAP PO SCH (10:08)
[2019-08-07 13:19] VITALS: BP 102/58
[2019-08-07 16:08] VITALS: BP 122/61
--- NOTE | 2019-08-07 17:20 | NUR ---
Discharge instructions given as ordered. Encourage to follow up with PMD as instructed. All questions and concerns addressed. Patient verbalized understanding. Medication reconciliation form completed and copy given to patient. No home medications held in Pharmacy and none returned to patient, and no needed vaccines given. IV removed with catheter intact, pressure dressing applied. Telemetry unit returned to ICU. Patient waiting for transportation home from family member. Will continue to monitor.
--- NOTE | 2019-08-07 18:13 | NUR ---
Patient wheeled out by staff accompanied by family with all personal belonging to automobile. No S/S of distress noted on departure.
== END 2019-08-07 18:13 | disposition home or self-care (01) | DRG 192 ==
LOC: ER 11:48 → OVERFLOW 11:49 → CENTRAL 16:48 → TELE-CENTR 08-03 10:11
PROVIDERS: ADMIT Nurse Practitioner Acute Care; ATTEND Internal Medicine Nephrology
PROC: 4A023N7 Measurement of Cardiac Sampling and Pressure, Left Heart, Percutaneous Approach (ICD-10-PCS; principal; 2019-07-30)
PROC: B211YZZ Fluoroscopy of Multiple Coronary Arteries using Other Contrast (ICD-10-PCS; 2019-07-30)
PROC: B215YZZ Fluoroscopy of Left Heart using Other Contrast (ICD-10-PCS; 2019-07-30)
DX: R07.89 Other chest pain (principal); E11.51 Type 2 diabetes mellitus with diabetic peripheral angiopathy without gangrene; G45.9 Transient cerebral ischemic attack, unspecified; I20.0 Unstable angina; D64.9 Anemia, unspecified; E03.9 Hypothyroidism, unspecified; E78.00 Pure hypercholesterolemia, unspecified; E78.5 Hyperlipidemia, unspecified; M79.7 Fibromyalgia; F31.9 Bipolar disorder, unspecified; F41.9 Anxiety disorder, unspecified; Z82.49 Family history of ischemic heart disease and other diseases of the circulatory system; Z83.3 Family history of diabetes mellitus; Z79.82 Long term (current) use of aspirin; Z79.01 Long term (current) use of anticoagulants; Z90.49 Acquired absence of other specified parts of digestive tract; Z88.5 Allergy status to narcotic agent; Z88.0 Allergy status to penicillin; Z88.8 Allergy status to other drugs, medicaments and biological substances
CPT/HCPCS: 36415; 70450; 71045; 78452; 80048; 80053; 80061; 80307; 81001; 82533; 83516; 83540; 83550; 83735; 84100; 84443; 84484; 85025; 85379; 85610; 85652; 85730; 86141; 86225; 86235; 93005; 93017; 93306; 93458; 93926; 94761; 96365; 99152; G0378; J0153; J2250; Q9967

== ENCOUNTER 2020-12-29 17:38 | Emergency (ER) | payer OTHER ==
[~2020-12-29] VITALS: Ht 152.4 cm; Wt 83.9 kg
[~2020-12-29 17:38] MED LIST: ASPI-231 PO; ATOR20TA PO; ATOR40TA52 PO; DULO20CA PO; FERR-7 PO; LEVO50TA7 PO; QUET50TA PO
[2020-12-29 22:01] VITALS: BP 147/67
[2020-12-30] MEDS ORDERED: IBUPROFEN 800 MG TAB PO ONE
== END 2020-12-30 00:20 | disposition home or self-care (01) ==
LOC: ER 17:38
DX: S93.402A Sprain of unspecified ligament of left ankle, initial encounter (principal); M76.62 Achilles tendinitis, left leg; M77.32 Calcaneal spur, left foot; M79.7 Fibromyalgia; E78.5 Hyperlipidemia, unspecified; Z79.899 Other long term (current) drug therapy; Z79.82 Long term (current) use of aspirin; Z88.0 Allergy status to penicillin; Z88.6 Allergy status to analgesic agent; Z90.49 Acquired absence of other specified parts of digestive tract; X58.XXXA Exposure to other specified factors, initial encounter; Y93.89 Activity, other specified; Y92.89 Other specified places as the place of occurrence of the external cause; Y99.8 Other external cause status
CPT/HCPCS: 73610

== ENCOUNTER 2021-12-04 05:55 | Emergency (ER) | payer MEDICAID, OTHER ==
[~2021-12-04] VITALS: Ht 152.4 cm; Wt 127.0 kg
[~2021-12-04 05:55] MED LIST changes: -ASPI-231 PO; +ASPI1TAB20 PO
[2021-12-04 07:34] LABS: Urine WBC None Seen /hpf (0 - 5)
[2021-12-04 08:00] LABS: Urine Bacteria NONE SEEN /hpf (None Seen); Urine Blood 3+ /uL (Negative); Urine Specific Gravity 1.031 (1.001-1.035)
[2021-12-04] MEDS ORDERED: SODIUM CHLORIDE 0.9% 1,000 ML IV ONE (09:45)
[2021-12-04] MEDS ORDERED: ONDANSETRON ODT 4 MG TAB PO ONE (09:45)
[2021-12-04] MEDS ORDERED: MORPHINE SULFATE 4 MG/ML SYR/VIAL IV ONE (09:45)
[2021-12-04 11:12] LABS: Basophils # (auto) 0.1 10 ^3/uL (0-0.2); Basophils % (auto) 0.9 % (0.0-2.0); Eosinophils # (auto) 0.1 10 ^3/uL (0-0.8); Eosinophils % (auto) 1.4 % (0.0-7.0); Hematocrit 36.3 % (36.0-46.0); Hemoglobin 12.5 g/dL (12.2-16.2); Lymphocytes # (auto) 1.9 10 ^3/uL (0.4-5.4); Lymphocytes % (auto) 17.9 % (10.0-50.0); Mean Corpuscular Hemoglobin 31.2 pg (28.0-32.0); Mean Corpuscular Hgb Conc. 34.4 g/dL (32.0-36.0); Mean Corpuscular Volume 90.5 fL (80.0-100.0); Monocytes # (auto) 1.1 10 ^3/uL (0-1.3); Monocytes % (auto) 10.5 % (0.0-12.0); Neutrophils # (auto) 7.3 10 ^3/uL (1.6-8.6); Neutrophils % (auto) 69.3 % (37.0-80.0); Red Blood Cells 4.01 10^6/uL (4.0-5.20); Red Cell Distribution Width 13.4 % (11.8-14.3); White Blood Cell 10.5 10^3/uL (4.4-10.8)
[2021-12-04 11:37] LABS: INR 1.05 (0.9-1.15); Partial Thromboplastin Time 26.5 sec (23.6-33.0)
[2021-12-04 11:55] LABS: Albumin 2.8 g/dL (3.4-5.0); Calcium 8.1 mg/dL (8.5-10.1); Potassium 4.3 mmol/L (3.5-5.1)
[2021-12-04 12:02] LABS: BUN/Creatinine Ratio 12.5; Total Protein 6.4 g/dL (6.4-8.2)
[2021-12-04 13:24] VITALS: BP 108/58
== END 2021-12-04 14:58 | disposition home or self-care (01) ==
LOC: ER 05:55
DX: N93.9 Abnormal uterine and vaginal bleeding, unspecified (principal); D21.9 Benign neoplasm of connective and other soft tissue, unspecified; E11.65 Type 2 diabetes mellitus with hyperglycemia; E46 Unspecified protein-calorie malnutrition; E78.5 Hyperlipidemia, unspecified; E03.9 Hypothyroidism, unspecified; Z86.2 Personal history of diseases of the blood and blood-forming organs and certain disorders involving the immune mechanism; Z68.43 Body mass index [BMI] 50.0-59.9, adult; Z90.49 Acquired absence of other specified parts of digestive tract; Z79.82 Long term (current) use of aspirin; Z79.899 Other long term (current) drug therapy; Z88.0 Allergy status to penicillin; Z88.5 Allergy status to narcotic agent; Z88.8 Allergy status to other drugs, medicaments and biological substances
CPT/HCPCS: 36415; 76830; 76856; 80053; 81001; 84484; 85025; 85610; 85730; 96361; 96374; 99285; J2270; J7030; Q0162